=== PATIENT | male | born 1975 | race Caucasian/White ===

== ENCOUNTER 2019-01-29 14:36 | Emergency (ER) | payer MEDICAID ==
[2019-01-29] MEDS: KETOROLAC 30 MG INJ IM (15:39)
== END 2019-01-29 16:02 | disposition home or self-care (01) ==
LOC: FTE 14:36
DX: H65.02 Acute serous otitis media, left ear (principal); H74.02 Tympanosclerosis, left ear; H72.92 Unspecified perforation of tympanic membrane, left ear
CPT/HCPCS: 96372; 99284-25